=== PATIENT | female | born 1990 | race Caucasian/White ===

== ENCOUNTER → 2018-11-05 | Outpatient (CLI) | payer SELFPAY ==
[2017-06-22 05:43] VITALS: BMI 32.3
[~2018-11-05] MED LIST: AMOX-559 PO; ASPI-1471 PO; CEPH500T7 PO; ETON68IM SQ; FLUC150T40 PO; FLUT16SP19 NS; IBUP800T37 PO; LOR5/325 PO; METO-734 PO; NITR-105 PO; ONDA4TAB97 PO; OXYC-865 PO; PREN-127 PO
== END ==
LOC: LAB 16:53
PROVIDERS: ATTEND Advanced Practice Midwife
DX: N89.8 Other specified noninflammatory disorders of vagina (principal)
CPT/HCPCS: 87210